=== PATIENT | female | born 1955 | race Caucasian/White ===

== ENCOUNTER 2017-02-02 11:01 | Emergency (ER) | payer SELFPAY ==
[~2017-02-02] VITALS: Ht 157.5 cm; Wt 96.3 kg
[2017-02-02 13:18] LABS: HEMATOCRIT 43.2 % (36.0-46.0); MCH 31.4 PG (29.0-34.0); MCHC 33.3 G/DL (30.0-36.0); MCV 94.1 FL (83-99); MEAN PLAT.VOLUME 8.9 uM^3 (9.5-12.4); PLATELET COUNT 204 K/uL (156-360); RBC DIS.WIDTH-CV 12.9 % (11.8-14.6); RBC DIS.WIDTH-SD 44.8 % (39-53); RED BLOOD COUNT 4.59 M/uL (3.80-5.20)
[2017-02-02] MEDS ORDERED: BENICAR20 MG PO (13:23)
[2017-02-02 13:27] LABS: CHLORIDE 107 mEq/L (99-109); POTASSIUM 4.1 mEq/L (3.7-5.4); PROTHROMBIN TIME 10.4 (9.2-11.2); PTT 24.4 (25-32); SODIUM 141 mEq/L (136-147)
[2017-02-02 13:29] LABS: GLUCOSE 111 mg/dL (70-99)
[2017-02-02 13:30] LABS: ANION GAP 8 MEQ/L (2-14)
[2017-02-02 13:32] LABS: ALKALINE PHOSPHATASE 66 IU/L (3-129)
[2017-02-02 13:33] LABS: GFR ESTIMATE (CALCULATED) > 59 mL/min/
[2017-02-02 13:34] LABS: UREA NITROGEN (BUN) 11 mg/dL (9-23)
[2017-02-02] MEDS ORDERED: MOTRIN800 MG PO (15:02)
[2017-02-02] MEDS ORDERED: NORCO 5/3251 TABLET PO (15:02)
[2017-02-02 15:49] VITALS: BP 174/99
== END 2017-02-02 15:59 | disposition home or self-care (01) ==
LOC: EME 11:01
PROVIDERS: Nurse Practitioner Family
DX: I80.01 Phlebitis and thrombophlebitis of superficial vessels of right lower extremity (principal); Z86.79 Personal history of other diseases of the circulatory system; I10 Essential (primary) hypertension
CPT/HCPCS: 80053; 85027; 85610; 85730; 93971; 99281; 99283